=== PATIENT | male | born 1980 | race Caucasian/White ===

== ENCOUNTER 2023-06-07 08:30 | Emergency (ER) | payer MEDICAID ==
[~2023-06-07] VITALS: Ht 182.9 cm; Wt 100.0 kg
[~2023-06-07 08:30] MED LIST: IBUP-1986 PO
[2023-06-07 08:41] VITALS: TEMP 97.2
[2023-06-07] MEDS ORDERED: methylPREDNISolone sod succ 125mg/2ml vial IV ONE (09:15)
[2023-06-07] MEDS ORDERED: diphenhydrAMINE 50 mg/ml inj IM ONE (09:15)
[2023-06-07] MEDS ORDERED: PRED20TA PO (10:55)
[2023-06-07] MEDS ORDERED: DIPH25CA83 PO (10:55)
[2023-06-07 11:29] VITALS: BP 147/103; PULSE 66; RESP 18; O2SAT 99
== END 2023-06-07 11:37 | disposition home or self-care (01) ==
LOC: ER 08:30
DX: T78.40XA Allergy, unspecified, initial encounter (principal); Z79.899 Other long term (current) drug therapy; X58.XXXA Exposure to other specified factors, initial encounter
CPT/HCPCS: 96372; 96374; 99284; J1200; J2930